=== PATIENT | female | born 1965 ===

== ENCOUNTER 2020-06-11 19:08 | Emergency (ER) | payer BC ==
[2020-06-11] MEDS ORDERED: Ondansetron 4 MG Tab.DIS PO ONE (19:09)
[2020-06-11] MEDS ORDERED: Sulfamethoxazole/Trimethoprim 800-160 MG Tab PO ONE (19:09)
[2020-06-11] MEDS ORDERED: Acetaminophen/oxyCODONE 325-5 MG Tab PO ONE (19:09)
[2020-06-11] MEDS ORDERED: Sodium Chloride 0.9% 10 ML Syringe FLUSH PRN (19:24)
[2020-06-11] MEDS ORDERED: Ondansetron 4 MG/2 ML SDV IVPUSH ONE (19:25)
[2020-06-11] MEDS ORDERED: Morphine 4 MG/ML VIAL IVPUSH ONE (19:26)
[2020-06-11] MEDS ORDERED: Sodium Chloride 0.9% 1,000 ML IV SCH (19:30)
[2020-06-11] MEDS ORDERED: SUMAtriptan 6 MG/0.5 ML SDV SUBCUT ONE (20:27)
[2020-06-11] MEDS ORDERED: Ketorolac 60 MG/2 ML SDV IM ONE (20:27)
[2020-06-11] MEDS ORDERED: Iopamidol 755 Mg/ML 100 ML Bottle IV ONE (20:30)
[2020-06-11] MEDS ORDERED: HYDROmorphone 2 MG/ML SDV IVPUSH ONE (21:01)
--- NOTE | 2020-06-11 21:50 | EDM.PDOC ---
ED HPI GENERAL MEDICAL PROBLEM - General Chief Complaint: Genitourinary Problem Stated Complaint: kidney stones Time Seen by Provider: 06/11/20 19:25 Source of Information: Reports: Patient History Limitations: Reports: No Limitations - History of Present Illness INITIAL COMMENTS - FREE TEXT/NARRATIVE: Patient presented to the ED from the [facility] because of N/V/D and left flank pain for 1-2 days. There is no associated fever, chills, cough,cold symptoms. back Pain Score (Numeric/FACES): 5 - Related Data Allergies Allergy/AdvReac Type Severity Reaction Status Date / Time No Known Allergies Allergy Verified 06/11/20 19:32 Home Meds: Home Meds Acetaminophen/oxyCODONE [Percocet 325-5 MG] 1 each PO Q4H PRN #15 tab 06/11/20 [Rx] Losartan [Cozaar] 100 mg PO DAILY 06/11/20 [History] Metoprolol Succinate 50 mg PO DAILY 06/11/20 [History] Ondansetron [Zofran ODT] 4 mg PO Q4H PRN #7 tab.dis 06/11/20 [Rx] Tamsulosin HCl [Flomax] 0.4 mg PO DAILY #10 cap.er.24h 06/11/20 [Rx] Past Medical History Cardiovascular History: Reports: Hypertension Social & Family History - Family History Family Medical History: No Pertinent Family History - Tobacco Use Tobacco Use Status *Q: Never Tobacco User Second Hand Smoke Exposure: No - Caffeine Use Caffeine Use: Reports: Coffee - Recreational Drug Use Recreational Drug Use: No ED ROS GENERAL - Review of Systems Review Of Systems: See Below Constitutional: Reports: No Symptoms HEENT: Reports: No Symptoms Respiratory: Reports: No Symptoms Cardiovascular: Reports: No Symptoms Endocrine: Reports: No Symptoms GI/Abdominal: Reports: Abdominal Pain, Nausea, Vomiting ED EXAM, GI/ABD - Physical Exam Exam: See Below Exam Limited By: No Limitations General Appearance: Alert, No Apparent Distress Nose: Normal Inspection, Normal Mucosa Throat/Mouth: Normal Inspection, Normal Lips, Normal Teeth Head: Atraumatic, Normocephalic Neck: Normal Inspection, Supple, Non-Tender, Full Range of Motion Respiratory/Chest: No Respiratory Distress, Lungs Clear, Normal Breath Sounds Cardiovascular: Normal Peripheral Pulses, Regular Rate, Rhythm, No Edema, No Gallop GI/Abdominal Exam: Normal Bowel Sounds, Soft, No Organomegaly, Other (L-CVAT) Back Exam: Normal Inspection, Full Range of Motion Extremities: Normal Inspection, Normal Range of Motion, Non-Tender Neurological: Alert, Oriented, CN II-XII Intact, Normal Cognition Course - Vital Signs Text/Narrative:: Labs/Abd-pelvis CT result was discussed with patient NS 1 L bolus Zofran 4 mg IV x1 Morphine 4 mg IV x1 Dilaudid 1 mg IV x1 Flomax Last Recorded V/S: Last Vital Signs Temp Pulse 85 06/11/20 22:04 Resp 17 06/11/20 22:04 BP 142/93 H 06/11/20 22:04 Pulse Ox 95 06/11/20 22:04 - Orders/Labs/Meds Orders: Active Orders 24 hr Category Date Time Status Abdomen Pelvis w Cont [CT] Stat Exams 06/11/20 19:58 Taken Saline Lock Insert [OM.PC] Routine Oth 06/11/20 19:24 Ordered Labs: Laboratory Tests 06/11/20 06/11/20 06/11/20 Range/Units 19:35 19:35 19:35 WBC 2.0 L (3.0-10.3) x10-3/uL RBC 4.21 (3.60-5.20) x10(6)uL Hgb 12.7 (11.4-15.5) g/dL Hct 37.9 (34.2-48.2) % MCV 90.1 (76.7-100.5) fL MCH 30.0 (23.9-33.9) pg MCHC 33.4 (31.9-34.8) g/dL RDW 14.7 (12.3-16.5) % Plt Count 99 L (151-488) x10(3)uL MPV 9.0 (7.1-12.4) fL Neut % (Auto) 62.3 (30.8-76.2) % Lymph % (Auto) 27.6 (18.4-52.1) % [place] % (Auto) 9.3 (4.4-15.7) % Eos % (Auto) 0.1 L (0.6-8.1) % Baso % (Auto) 0.7 (0.2-1.5) % Neut # (Auto) 1.2 L (1.5-6.3) x10-3/uL Lymph # (Auto) 0.5 L (1.0-4.4) x10-3/uL [place] # (Auto) 0.2 L (0.3-1.0) x10-3/uL Eos # (Auto) 0.0 (0.0-0.8) x10-3/uL Baso # (Auto) 0.0 (0.0-0.1) x10-3/uL Sodium (135-145) mmol/L Potassium (3.5-5.3) mmol/L Chloride (100-110) mmol/L Carbon Dioxide (21-32) mmol/L BUN (7-18) mg/dL Creatinine (0.55-1.02) mg/dL Est Cr Clr Drug Dosing mL/min Estimated GFR (MDRD) (>60) BUN/Creatinine Ratio (9-20) Glucose (80-116) mg/dL Calcium (8.6-10.2) mg/dL Total Bilirubin (0.1-1.3) mg/dL AST (5-25) IU/L ALT (12-36) U/L Alkaline Phosphatase (56-112) IU/L Total Protein (6.0-8.0) g/dL Albumin (3.5-5.2) g/dL Globulin g/dL Albumin/Globulin Ratio Amylase 33 (25-115) U/L Lipase 97 (73-393) U/L SARS-CoV-2 RNA (GRETEL) (NEGATIVE) 06/11/20 06/11/20 Range/Units 19:48 20:23 WBC (3.0-10.3) x10-3/uL RBC (3.60-5.20) x10(6)uL Hgb (11.4-15.5) g/dL Hct (34.2-48.2) % MCV (76.7-100.5) fL MCH (23.9-33.9) pg MCHC (31.9-34.8) g/dL RDW (12.3-16.5) % Plt Count (151-488) x10(3)uL MPV (7.1-12.4) fL Neut % (Auto) (30.8-76.2) % Lymph % (Auto) (18.4-52.1) % [place] % (Auto) (4.4-15.7) % Eos % (Auto) (0.6-8.1) % Baso % (Auto) (0.2-1.5) % Neut # (Auto) (1.5-6.3) x10-3/uL Lymph # (Auto) (1.0-4.4) x10-3/uL [place] # (Auto) (0.3-1.0) x10-3/uL Eos # (Auto) (0.0-0.8) x10-3/uL Baso # (Auto) (0.0-0.1) x10-3/uL Sodium 137 (135-145) mmol/L Potassium 3.6 (3.5-5.3) mmol/L Chloride 99 L (100-110) mmol/L Carbon Dioxide 22 (21-32) mmol/L BUN 11 (7-18) mg/dL Creatinine 0.8 (0.55-1.02) mg/dL Est Cr Clr Drug Dosing 59.96 mL/min Estimated GFR (MDRD) > 60 (>60) BUN/Creatinine Ratio 13.8 (9-20) Glucose 120 H (80-116) mg/dL Calcium 8.4 L (8.6-10.2) mg/dL Total Bilirubin 0.9 (0.1-1.3) mg/dL AST 63 H (5-25) IU/L ALT 72 H (12-36) U/L Alkaline Phosphatase 47 L (56-112) IU/L Total Protein 7.5 (6.0-8.0) g/dL Albumin 3.4 L (3.5-5.2) g/dL Globulin 4.1 g/dL Albumin/Globulin Ratio 0.8 Amylase (25-115) U/L Lipase (73-393) U/L SARS-CoV-2 RNA (GRETEL) Negative (NEGATIVE) Meds: Medications Discontinued Medications Generic Name Dose Route Start Last Admin Trade Name Freq PRN Reason Stop Dose Admin Hydromorphone HCl 1 mg 06/11/20 21:01 06/11/20 21:08 Dilaudid IVPUSH 06/11/20 21:02 1 mg ONETIME ONE Administration Sodium Chloride 1,000 mls @ 999 mls/hr 11/23/20 19:30 06/11/20 19:43 Normal Saline IV 999 mls/hr ASDIRECTED SHEELA Administration Iopamidol 100 ml 06/11/20 20:30 06/11/20 20:47 Isovue-370 (76%) IV 06/11/20 20:31 100 ml . DIRECTED ONE Administration Ketorolac Tromethamine 60 mg 06/11/20 20:27 06/11/20 21:01 Toradol IM 06/11/20 20:28 Not Given ONETIME ONE Morphine Sulfate 4 mg 06/11/20 19:26 06/11/20 19:43 Morphine IVPUSH 06/11/20 19:27 4 mg ONETIME ONE Administration Ondansetron HCl 4 mg 06/11/20 19:25 06/11/20 19:42 Zofran IVPUSH 06/11/20 19:26 4 mg ONETIME ONE Administration Sodium Chloride 10 ml 06/11/20 19:24 Saline Flush FLUSH ASDIRECTED PRN Keep Vein Open Sumatriptan Succinate 6 mg 06/11/20 20:27 06/11/20 21:01 Imitrex SUBCUT 06/11/20 20:28 Not Given ONETIME ONE Departure - Departure Time of Disposition: 22:00 Disposition: Home, Self-Care 01 Condition: Good Clinical Impression: Nephrolithiasis, UTI, Urinary tract infectious disease - Discharge Information Prescriptions: Tamsulosin HCl [Flomax] 0.4 mg PO DAILY #10 cap.er.24h Acetaminophen/oxyCODONE [Percocet 325-5 MG] 1 each PO Q4H PRN #15 tab PRN Reason: Pain Ondansetron [Zofran ODT] 4 mg PO Q4H PRN #7 tab.dis PRN Reason: Nausea Instructions: Kidney Stones, [id number], Urinary Tract Infection, Adult Referrals: PCP,None [Ordering Only Provider] - Forms: ED Department Discharge Additional Instructions: Please read discharge instructions on nephrolithiasis an UTI Increase oral fluids Flomax 1 tablet daily Percocet 5/325, tale 1-2 tablets every 4-6 hours as needed for pain Zofran OFT every 4 hours as needed for nausea Follow up next week Sepsis Event Note (ED) - Evaluation Sepsis Screening Result: No Definite Risk - My Orders Last 24 Hours: My Active Orders 06/11/20 19:24 Saline Lock Insert [OM.PC] Routine 06/11/20 19:58 Abdomen Pelvis w Cont [CT] Stat - Assessment/Plan Last 24 Hours: My Active Orders 06/11/20 19:24 Saline Lock Insert [OM.PC] Routine 06/11/20 19:58 Abdomen Pelvis w Cont [CT] Stat
== END 2020-06-11 22:10 | disposition home or self-care (01) ==
LOC: FB.ED 19:08
DX: N20.0 Calculus of kidney (principal); N39.0 Urinary tract infection, site not specified; I10 Essential (primary) hypertension; Z79.899 Other long term (current) drug therapy; Z20.828 Contact with and (suspected) exposure to other viral communicable diseases
CPT/HCPCS: 36415; 74177; 80053; 82150; 83690; 85025; 87635; 96374; 96375; 99284; A9270; J1170; J2270; J2405; J7030; Q9967; U0002